=== PATIENT | female | born 1985 | race Two or more races ===

== ENCOUNTER 2024-06-05 13:57 | Emergency (ER) | payer MEDICAID, OTHER ==
[~2024-06-05] VITALS: Ht 160 cm; Wt 68.0 kg
[2024-06-05] MEDS ORDERED: GENT0.3S10 EACHEYE (15:17)
[2024-06-05] MEDS ORDERED: BROM0.072 OP (15:17)
[2024-06-05 15:45] VITALS: BP 111/68
[2024-06-05] MEDS ORDERED: [UNRECOGNIZED DRUG - CODE] OP (15:54)
[2024-06-05 22:08] VITALS: PULSE 67; RESP 16; O2SAT 96
== END 2024-06-05 16:09 | disposition home or self-care (01) ==
LOC: ER 13:57
DX: H10.89 Other conjunctivitis (principal); H57.11 Ocular pain, right eye